=== PATIENT | male | born 1970 | race Caucasian/White ===

== ENCOUNTER 2018-06-10 20:29 | Emergency (ER) | payer MEDICAID ==
[~2018-06-10] VITALS: Ht 175.3 cm; Wt 145.0 kg
[2018-06-11 04:00] VITALS: BP 171/106
== END 2018-06-11 04:35 | disposition home or self-care (01) ==
LOC: ER 20:29
DX: S40.012A Contusion of left shoulder, initial encounter (principal); S60.222A Contusion of left hand, initial encounter; S90.112A Contusion of left great toe without damage to nail, initial encounter; R07.89 Other chest pain; E11.9 Type 2 diabetes mellitus without complications; E78.00 Pure hypercholesterolemia, unspecified; I10 Essential (primary) hypertension; Z88.2 Allergy status to sulfonamides; W01.0XXA Fall on same level from slipping, tripping and stumbling without subsequent striking against object, initial encounter; Y93.89 Activity, other specified; Y92.018 Other place in single-family (private) house as the place of occurrence of the external cause
CPT/HCPCS: 71045; 73030; 73130; 73660; 99284